=== PATIENT | female | born 2000 | race Caucasian/White ===

== ENCOUNTER 2025-05-14 17:11 | Emergency (ER) | payer SELFPAY ==
[~2025-05-14] VITALS: Ht 152.4 cm; Wt 56.7 kg
[2025-05-14] MEDS ORDERED: ACETAMINOPHEN 500 MG TABLET ONE (19:51)
[2025-05-14] MEDS: ACETAMINOPHEN 500 MG TABLET PO ONE (19:54)
[2025-05-14 20:09] LABS: *URINE HCG, QUAL NEGATIVE (NEGATIVE)
[2025-05-14 21:14] VITALS: BP 130/81; TEMP 97.7; O2SAT 100
== END 2025-05-14 21:14 | disposition home or self-care (01) ==
LOC: ER 17:18
DX: S06.0X0A Concussion without loss of consciousness, initial encounter (principal); S16.1XXA Strain of muscle, fascia and tendon at neck level, initial encounter; S29.012A Strain of muscle and tendon of back wall of thorax, initial encounter; R06.00 Dyspnea, unspecified; R07.9 Chest pain, unspecified; R51.9 Headache, unspecified; Z88.0 Allergy status to penicillin; V43.52XA Car driver injured in collision with other type car in traffic accident, initial encounter; Y93.89 Activity, other specified; Y92.488 Other paved roadways as the place of occurrence of the external cause; Y99.8 Other external cause status
CPT/HCPCS: 70450; 71250; 72125; 84703; A4606; A4663; A9150